=== PATIENT | male | born 1975 | race Caucasian/White ===

== ENCOUNTER 2019-03-13 06:47 | Emergency (ER) | payer SELFPAY ==
[~2019-03-13] VITALS: Ht 177.8 cm; Wt 90.7 kg
[2019-03-13] MEDS ORDERED: IBUPROFEN 600 MG TAB PO STA (08:49)
[2019-03-13] MEDS ORDERED: ULTRAM50 MG PO (09:23)
--- NOTE | 2019-03-13 09:24 | Diagnostic Imaging Report ---
EXAMINATION: KNEE RIGHT THREE VIEWS INDICATION: Knee pain COMPARISON: None FINDINGS: No acute fracture or dislocation. Alignment is anatomic. No substantial degenerative change. No knee joint effusion. IMPRESSION: No acute osseous injury. Signed by: Sarah Ponce MD on 03/13/2019 9:21 AM
[2019-03-13 09:53] VITALS: BP 141/90
--- NOTE | 2019-03-13 10:03 | NUR ---
PT STATES TRAMADOL DOES NOT WORK FOR HIM.
== END 2019-03-13 10:12 | disposition home or self-care (01) ==
LOC: ER 06:47
DX: M25.561 Pain in right knee (principal); R26.2 Difficulty in walking, not elsewhere classified; G89.29 Other chronic pain
CPT/HCPCS: 99283

== ENCOUNTER 2024-04-11 09:55 | Emergency (ER) | payer OTHER ==
[~2024-04-11] VITALS: Ht 177.8 cm; Wt 98.0 kg
[~2024-04-11 09:55] MED LIST: ULTRAM50 MG PO
[2024-04-11 10:09] VITALS: RESP 12; TEMP 98.1
[2024-04-11 10:51] VITALS: PULSE 93; O2SAT 98
[2024-04-11] MEDS ORDERED: NAPROXEN250 MG PO (11:19)
== END 2024-04-11 11:26 | disposition home or self-care (01) ==
LOC: ER 10:08
DX: M25.562 Pain in left knee (principal); B19.20 Unspecified viral hepatitis C without hepatic coma
CPT/HCPCS: 93971; 99283